=== PATIENT | female | born 1980 | race Caucasian/White ===

== ENCOUNTER 2020-01-25 09:39 | Inpatient (IN) | payer OTHER ==
--- NOTE | 2020-01-25 10:11 | BHS.RME ---
Substance Use & Tx History - Substance Use History Heroin Substance amount: 3-4 bags Frequency of use: Daily Substance route: Oral Date of Last Use: 01/25/20 (9am) Nicotine Substance amount: former smoker Physical/Psych/Mental Status - Behavior General Behavior: Increased activity (restlessness, agitation) Eye Contact: Normal - Cooperativeness Cooperativeness: Cooperative - Thinking Thought Processes: Tight, Logical, Goal Directed - Physical Health Problems Is patient presently having any pain?: No Does patient presently have any injuries (include location): No Does patient currently have a fever: No Is patient : No COWS - Scale Resting Pulse: 0= [place] 80 or Below Sweatin= No chills or Flushing Restless Observation: 1= Difficult to Sit Still Pupil Size: 0= Normal to Room Light Bone or Joint Aches: 1= Mild Discomfort Runny Nose/ Eye Tearin= Nasal Congestion GI Upset > 30mins: 1= Stomach Cramp Tremor Observation: 1= Tremor [place], Not Seen Yawning Observation: 1= 1-2x During Session Anxiety or Irritability: 1=Feels Anxious/Irritable Goose Flesh Skin: 0=Smooth Skin COWS Score: 7
--- NOTE | 2020-01-25 10:39 | HP ---
COWS - Scale Resting Pulse: 0= [place] 80 or Below Sweatin= No chills or Flushing Restless Observation: 1= Difficult to Sit Still Pupil Size: 0= Normal to Room Light Bone or Joint Aches: 1= Mild Discomfort Runny Nose/ Eye Tearin= Nasal Congestion GI Upset > 30mins: 1= Stomach Cramp Tremor Observation: 1= Tremor [place], Not Seen Yawning Observation: 1= 1-2x During Session Anxiety or Irritability: 1=Feels Anxious/Irritable Goose Flesh Skin: 0=Smooth Skin COWS Score: 7 CIWA Score - Admission Criteria [facility] Guidelines: Admission for Medically Managed Detox: Requires at least one of the followin. CIWA greater than 12 2. Seizures within the past 24 hours 3. Delirium tremens within the past 24 hours 4. Hallucinations within the past 24 hours 5. Acute intervention needed for co occurring medical disorder 6. Acute intervention needed for co occurring psychiatric disorder 7. Severe withdrawal that cannot be handled at a lower level of care (continued vomiting, continued diarrhea, abnormal vital signs) requiring intravenous medication and/or fluids 8. Admitting History and Physical - Admission Chief Complaint: " I want to be off of all substances. I tried detoxing myself but I couldn't do it." History of Present Illness: 39 year old male with history of opioid dependence with withdrawal. She used to be on methadone at [facility] until 05/2019 on a low dose of methadone 50mg daily and was lost to follow up. She attempted to go back to her program yesterday and was told they no longer have the license to treat "heroin-addicted" patients and referred her to come here for detox. She attempted self detox through suboxone strips she bought on the streets and felt too ill to continue. Apparently she had almost precipitated a withdrawal own herself. She feels for herself that she would be better off without any MAT or substance in her system and wants to try abstinence. She will do detox and then go on to rehab. She wants to at least try it. Substance Use & Tx History - Substance Use History Heroin Substance amount: 3-4 bags Frequency of use: Daily Substance route: Oral Date of Last Use: 01/25/20 (9am) She has overdosed once 3 months ago, does not have narcan Nicotine Substance amount: former smoker PMH: None Psurg: Right foot Psych: None Lives alone in [place], has no legal problems pending. LESLEY=0 COWS=7 She meets criteria for detox as she poses high risk for relapse and attempt at self detox was already shown to be too risky for her and her attempt to return to her treating program was met by her being turned away and referred to our program. In my opinion, attempting to self detox would pose a medical risk for this patient and returning her to the streets as an even higher risk for overdose as she's already had a recent dose and has no narcan. History Source: Patient Limitations to Obtaining History: No Limitations - Past Medical History Psych: Yes: Addictions - Past Surgical History Past Surgical History: Yes: None - Alcohol/Substance Use Hx Alcohol Use: No History of Substance Use: reports: Heroin Date of Last Use: 01/25/20 - Social History Usual Living Arrangement: Yes: Alone Do you think of yourself as: Straight/Heterosexual ADL: Independent Occupation: unemployed History of Recent Travel: No Admission [facility] Allergies/Adverse Reactions: Allergies Allergy/AdvReac Type Severity Reaction Status Date / Time No Known Allergies Allergy Verified 01/25/20 10:26 Exam Limitations: No Limitations - Ebola screening Have you traveled outside of the country in the last 21 days: No Have you had contact with anyone from an Ebola affected area: No Have you been sick,other than usual withdrawal symptoms: No Do you have a fever: No - Review of Systems Constitutional: Chills, Unintentional Wgt. Loss EENT: reports: No Symptoms Reported Respiratory: reports: No Symptoms reported Cardiac: reports: No Symptoms Reported GI: reports: No Symptoms Reported : reports: No Symptoms Reported Musculoskeletal: reports: No Symptoms Reported Integumentary: reports: No Symptoms Reported Neuro: reports: No Symptoms reported Endocrine: reports: No Symptoms Reported Hematology: reports: No Symptoms Reported Psychiatric: reports: Judgement Intact, Mood/Affect Appropiate, Orientated x3, Agitated, Anxious Other Systems: Reviewed and Negative Patient History - Patient Medical History Hx Anemia: No - Patient Surgical History Past Surgical History: No - PPD History Previous Implant?: Yes Documented Results: Negative w/o proof Implanted On Prior [facility] Admission?: No PPD to be Administered?: Yes - Smoking Cessation Smoking history: Former smoker Have you smoked in the past 12 months: No Hx Chewing Tobacco Use: No Initiated information on smoking cessation: No - Substances abused Heroin Substance route: Inhalation Frequency: Daily Amount used: 4 bags Age of first use: 33 Date of last use: 01/25/20 Admission Physical Exam [facility] - Vital Signs Vital Signs: Vital Signs - 24 hr 01/25/20 10:29 Temperature 97.8 F Pulse Rate 75 Respiratory 18 Rate Blood Pressure 117/73 - Physical General Appearance: Yes: Mild Distress, Thin, Irritable, Anxious HEENTM: Yes: EOMI, Hearing grossly Normal, Normal ENT Inspection, Normocephalic, Normal Voice, AMOL, Pharynx Normal, Tm's normal Respiratory: Yes: Chest Non-Tender, Lungs Clear, Normal Breath Sounds, No Respiratory Distress, No Accessory Muscle Use Neck: Yes: No masses,lesions,Nodules, Supple, Trachea in good position Breast: Yes: Within Normal Limits Cardiology: Yes: Regular Rhythm, Regular Rate, S1, S2 Abdominal: Yes: Normal Bowel Sounds, Non Tender, Soft Genitourinary: Yes: Within Normal Limits Back: Yes: Normal Inspection Musculoskeletal: Yes: full range of Motion, Gait Steady, Pelvis Stable Extremities: Yes: Normal Capillary Refill, Normal Inspection, Normal Range of Motion, Non-Tender Neurological: Yes: recycle driver II-XII NML intact, Fully Oriented, Alert, Motor Strength 5/5, Normal Mood/Affect, Normal Response Integumentary: Yes: Normal Color, Warm Lymphatic: Yes: Within Normal Limits - Diagnostic (1) Opioid dependence with withdrawal Current Visit: Yes Status: Acute Cleared for Admission [facility] - Detox or Rehab [facility] Level of Care: Medically Managed Detox Regimen/Protocol: Methadone Claeared for Rehab Admission: No Screened but not Admitted - Documentation of Visit Screened but not Admitted: No Breathalyzer - Breathalyzer Breathalyzer: 0 Vital Signs - Vital Signs Vital signs refused: No Temperature: 97.8 F Pulse Rate: 75 Respiratory Rate: 18 Blood Pressure: 117/73 BP Location: Left Arm Blood Pressure position: Sitting - Height Height: 5 ft 7 in - Weight Weight: 128 lb Weight measurement method: Standing scale - BMI Body Mass Index (BMI): 20.0 - Bowel Function Bowel Movement: No Urine Drug Screen - Test Device Lot number: [id number] Expiration date: 09/06/21 - Control Is test valid?: Yes - Results Drug screen NEGATIVE: No Urine drug screen results: MOP-Opiates Inpatient Rehab Admission - Rehab Decision to Admit Inpatient rehab admission?: No
[2020-01-25] MEDS ORDERED: BISMUTH SUBSALICYLATE 524 MG/30 ML UD PO PRN (11:08)
[2020-01-25] MEDS ORDERED: ACETAMINOPHEN 325 MG TABLET (FP) PO PRN ×2 (11:08)
[2020-01-25] MEDS ORDERED: MENTHOL/PHENOL 1 EACH UD MM PRN (11:08)
[2020-01-25] MEDS ORDERED: MAGNESIUM CITRATE 300 ML BOTTLE PO PRN (11:08)
[2020-01-25] MEDS ORDERED: MAGNESIUM HYDROX 2400MG/30ML ORAL SUSPENSION 30 ML CUP PO PRN (11:08)
[2020-01-25] MEDS ORDERED: MAG HYDROX/AL HYDROX/SIMETH 30 ML UNIT-DOSE CUP PO PRN (11:08)
[2020-01-25] MEDS ORDERED: cloNIDine HCL 0.1 MG TABLET PO PRN (11:08)
[2020-01-25] MEDS ORDERED: BIMATOPROST TP SCH (11:15)
--- NOTE | 2020-01-25 11:37 | EKG ---
Test Reason : Blood Pressure : / mmHG Vent. Rate : 064 BPM Atrial Rate : 064 BPM P-R Int : 152 ms QRS Dur : 098 ms QT Int : 408 ms P-R-T Axes : 059 090 073 degrees QTc Int : 420 ms NORMAL SINUS RHYTHM RIGHTWARD AXIS INCOMPLETE RIGHT BUNDLE BRANCH BLOCK BORDERLINE ECG NO PREVIOUS ECGS AVAILABLE Confirmed by MD Shawn, Anil ([id number]) on 01/25/2020 11:37:10 AM Referred By: Confirmed By:Anil Escobar MD
[2020-01-25] MEDS ORDERED: METHADONE HCL 10 MG TABLET (FOR DETOX USE ONLY) PO ONE (11:45)
[2020-01-25] MEDS ORDERED: ONDANSETRON *ODT* 4 MG TABLET SL ONE (11:45)
[2020-01-25] MEDS: PRENATAL VITAMINS W/ FOLIC ACID TABLET (FP) PO SCH (11:54)
[2020-01-25] MEDS: hydrOXYzine PAMOATE 25 MG CAPSULE (FP) PO SCH ×3 (14:07→22:56)
[2020-01-25 14:54] LABS: HEMATOCRIT 33.1 % (32.4-45.2); HEMOGLOBIN 10.8 GM/dL (10.7-15.3); MCH 28.9 pg (25.7-33.7); MCHC 32.5 g/dl (32.0-36.0); MEAN CELL VOLUME 88.7 fl (80-96); MEAN PLT VOLUME 8.6 fl (7.5-11.1); PLATELET COUNT 211 K/MM3 (134-434); RBC 3.73 M/mm3 (3.60-5.2); RDW 14.6 % (11.6-15.6); WHITE BLOOD COUNT 6.5 K/mm3 (4.0-10.0)
[2020-01-25 15:10] LABS: ALBUMIN 3.7 g/dl (3.4-5.0); BILIRUBIN,TOTAL 0.2 mg/dL (0.2-1); BLOOD UREA NITROGEN 15.5 mg/dL (7-18); CALCIUM 8.8 mg/dL (8.5-10.1); CREATININE 0.7 mg/dL (0.55-1.3); POTASSIUM 4.2 mmol/L (3.5-5.1); TOT PROT 7.1 g/dl (6.4-8.2)
[2020-01-25] MEDS: MELATONIN 5 MG TABLETS PO SCH (22:56)
[2020-01-25] MEDS: THIAMINE HCL 100 MG TABLET (FP) PO SCH (22:57)
[2020-01-26] MEDS: hydrOXYzine PAMOATE 25 MG CAPSULE (FP) PO SCH ×5 (06:55→22:43)
[2020-01-26] MEDS ORDERED: METHADONE HCL 5 MG TABLET (FOR DETOX USE ONLY) ONE (09:07)
[2020-01-26] MEDS ORDERED: METHADONE HCL 10 MG TABLET (FOR DETOX USE ONLY) ONE (09:08)
[2020-01-26] MEDS ORDERED: METHADONE (DETOX) 20 MG, METHADONE (DETOX) 5 MG PO ONE (10:00)
[2020-01-26] MEDS: PRENATAL VITAMINS W/ FOLIC ACID TABLET (FP) PO SCH (10:23)
--- NOTE | 2020-01-26 10:23 | PN ---
BHS COWS - Scale Resting Pulse: 0= [place] 80 or Below Sweatin= No chills or Flushing Restless Observation: 0= Sits Still Pupil Size: 1= Pupils >than Normal Bone or Joint Aches: 2= Severe Diffuse Aches Runny Nose/ Eye Tearin= Nasal Congestion GI Upset > 30mins: 1= Stomach Cramp Tremor Observation of Outstretched Hands: 2= Slight Tremor Visible Yawning Observation: 1= 1-2x During Session Anxiety or Irritability: 2=Irritable/Anxious Goose Flesh Skin: 0=Smooth Skin COWS Score: 10 BHS Progress Note (SOAP) Subjective: alert,irritable,anxious,interrupted sleep,aching pain in the body,ambulation on the unit Objective: 01/26/20 10:22 Vital Signs Temperature 98.1 F 01/26/20 06:18 Pulse Rate 69 01/26/20 06:18 Respiratory Rate 18 01/26/20 06:18 Blood Pressure 119/79 01/26/20 06:18 O2 Sat by Pulse Oximetry (%) 96 01/26/20 06:18 01/26/20 10:22 Laboratory Last Values WBC 6.5 K/mm3 (4.0-10.0) 01/25/20 11:00 RBC 3.73 M/mm3 (3.60-5.2) 01/25/20 11:00 Hgb 10.8 GM/dL (10.7-15.3) 01/25/20 11:00 Hct 33.1 % (32.4-45.2) 01/25/20 11:00 MCV 88.7 fl (80-96) 01/25/20 11:00 MCH 28.9 pg (25.7-33.7) 01/25/20 11:00 MCHC 32.5 g/dl (32.0-36.0) 01/25/20 11:00 RDW 14.6 % (11.6-15.6) 01/25/20 11:00 Plt Count 211 K/MM3 (134-434) 01/25/20 11:00 MPV 8.6 fl (7.5-11.1) 01/25/20 11:00 Sodium 137 mmol/L (136-145) 01/25/20 11:00 Potassium 4.2 mmol/L (3.5-5.1) 01/25/20 11:00 Chloride 101 mmol/L (98-107) 01/25/20 11:00 Carbon Dioxide 28 mmol/L (21-32) 01/25/20 11:00 Anion Gap 8 MMOL/L (8-16) 01/25/20 11:00 BUN 15.5 mg/dL (7-18) 01/25/20 11:00 Creatinine 0.7 mg/dL (0.55-1.3) 01/25/20 11:00 Est GFR (CKD-EPI)AfAm 125.61 01/25/20 11:00 Est GFR (CKD-EPI)NonAf 108.38 01/25/20 11:00 Random Glucose 67 mg/dL (74-106) L 01/25/20 11:00 Calcium 8.8 mg/dL (8.5-10.1) 01/25/20 11:00 Total Bilirubin 0.2 mg/dL (0.2-1) 01/25/20 11:00 AST 15 U/L (15-37) 01/25/20 11:00 ALT 22 U/L (13-61) 01/25/20 11:00 Alkaline Phosphatase 55 U/L (45-117) 01/25/20 11:00 Total Protein 7.1 g/dl (6.4-8.2) 01/25/20 11:00 Albumin 3.7 g/dl (3.4-5.0) 01/25/20 11:00 POC Urine HCG, Qual Negative 01/25/20 10:12 Syphilis Serology Non-reactive (NONREACTIVE) 01/25/20 11:00 COVID-19 (SARAY) Not detected (Not Detected) 01/25/20 11:00 HIV Ag/Ab Combo Qual Negative (NEGATIVE) 01/25/20 11:00 Assessment: 01/26/20 10:22 withdrawal symptom Plan: continue detox methadone regimen,encourage fluid,oral intake,initial glucose 67,bgm x 1 in am
[2020-01-26] MEDS: THIAMINE HCL 100 MG TABLET (FP) PO SCH (22:43)
[2020-01-26] MEDS: MELATONIN 5 MG TABLETS PO SCH (22:43)
[2020-01-27] MEDS: hydrOXYzine PAMOATE 25 MG CAPSULE (FP) PO SCH ×2 (07:17→10:34)
[2020-01-27] MEDS ORDERED: METHADONE HCL 10 MG TABLET (FOR DETOX USE ONLY) PO ONE (10:00)
--- NOTE | 2020-01-27 10:28 | PN ---
BHS COWS - Scale Resting Pulse: 1= [place] 81-100 Sweatin= No chills or Flushing Restless Observation: 0= Sits Still Pupil Size: 0= Normal to Room Light Bone or Joint Aches: 1= Mild Discomfort Runny Nose/ Eye Tearin= Nasal Congestion GI Upset > 30mins: 1= Stomach Cramp Tremor Observation of Outstretched Hands: 2= Slight Tremor Visible Yawning Observation: 0= None Anxiety or Irritability: 2=Irritable/Anxious Goose Flesh Skin: 0=Smooth Skin COWS Score: 8 BHS Progress Note (SOAP) Subjective: alert,irritable,anxious,interrupted sleep,pain in the body and back,aching pain Objective: 01/27/20 10:26 Vital Signs Temperature 97.8 F 01/27/20 09:07 Pulse Rate 90 01/27/20 09:07 Respiratory Rate 17 01/27/20 09:07 Blood Pressure 104/68 01/27/20 09:07 O2 Sat by Pulse Oximetry (%) 98 01/27/20 09:07 Laboratory Last Values WBC 6.5 K/mm3 (4.0-10.0) 01/25/20 11:00 RBC 3.73 M/mm3 (3.60-5.2) 01/25/20 11:00 Hgb 10.8 GM/dL (10.7-15.3) 01/25/20 11:00 Hct 33.1 % (32.4-45.2) 01/25/20 11:00 MCV 88.7 fl (80-96) 01/25/20 11:00 MCH 28.9 pg (25.7-33.7) 01/25/20 11:00 MCHC 32.5 g/dl (32.0-36.0) 01/25/20 11:00 RDW 14.6 % (11.6-15.6) 01/25/20 11:00 Plt Count 211 K/MM3 (134-434) 01/25/20 11:00 MPV 8.6 fl (7.5-11.1) 01/25/20 11:00 Sodium 137 mmol/L (136-145) 01/25/20 11:00 Potassium 4.2 mmol/L (3.5-5.1) 01/25/20 11:00 Chloride 101 mmol/L (98-107) 01/25/20 11:00 Carbon Dioxide 28 mmol/L (21-32) 01/25/20 11:00 Anion Gap 8 MMOL/L (8-16) 01/25/20 11:00 BUN 15.5 mg/dL (7-18) 01/25/20 11:00 Creatinine 0.7 mg/dL (0.55-1.3) 01/25/20 11:00 Est GFR (CKD-EPI)AfAm 125.61 01/25/20 11:00 Est GFR (CKD-EPI)NonAf 108.38 01/25/20 11:00 POC Glucometer 91 UNITS (80-120) 01/27/20 06:23 Random Glucose 67 mg/dL (74-106) L 01/25/20 11:00 Calcium 8.8 mg/dL (8.5-10.1) 01/25/20 11:00 Total Bilirubin 0.2 mg/dL (0.2-1) 01/25/20 11:00 AST 15 U/L (15-37) 01/25/20 11:00 ALT 22 U/L (13-61) 01/25/20 11:00 Alkaline Phosphatase 55 U/L (45-117) 01/25/20 11:00 Total Protein 7.1 g/dl (6.4-8.2) 01/25/20 11:00 Albumin 3.7 g/dl (3.4-5.0) 01/25/20 11:00 POC Urine HCG, Qual Negative 01/25/20 10:12 Syphilis Serology Non-reactive (NONREACTIVE) 01/25/20 11:00 COVID-19 (SARAY) Not detected (Not Detected) 01/25/20 11:00 HIV Ag/Ab Combo Qual Negative (NEGATIVE) 01/25/20 11:00 Assessment: 01/27/20 10:27 withdrawal symptom Plan: continue detox methadone regimen,bgm is 91
[2020-01-27] MEDS: PRENATAL VITAMINS W/ FOLIC ACID TABLET (FP) PO SCH (10:34)
[2020-01-27] MEDS: METHOCARBAMOL 500 MG TABLET PO PRN ×2 (10:34→18:52)
[2020-01-27] MEDS: hydrOXYzine PAMOATE 25 MG CAPSULE (FP) PO PRN (18:52)
[2020-01-27] MEDS: MELATONIN 5 MG TABLETS PO SCH (22:59)
[2020-01-27] MEDS: THIAMINE HCL 100 MG TABLET (FP) PO SCH (22:59)
[2020-01-28] MEDS ORDERED: METHADONE HCL 5 MG TABLET (FOR DETOX USE ONLY) ONE (08:58)
[2020-01-28] MEDS ORDERED: METHADONE HCL 10 MG TABLET (FOR DETOX USE ONLY) ONE (08:58)
[2020-01-28] MEDS ORDERED: METHADONE (DETOX) 10 MG, METHADONE (DETOX) 5 MG PO ONE (10:00)
[2020-01-28] MEDS: PRENATAL VITAMINS W/ FOLIC ACID TABLET (FP) PO SCH (10:11)
[2020-01-28] MEDS: METHOCARBAMOL 500 MG TABLET PO PRN ×2 (10:12→17:02)
--- NOTE | 2020-01-28 12:35 | PN ---
BHS COWS - Scale Resting Pulse: 1= [place] 81-100 Sweatin= Chills/Flushing Restless Observation: 1= Difficult to Sit Still Pupil Size: 0= Normal to Room Light Bone or Joint Aches: 2= Severe Diffuse Aches Runny Nose/ Eye Tearin= None GI Upset > 30mins: 0= None Tremor Observation of Outstretched Hands: 2= Slight Tremor Visible Yawning Observation: 0= None Anxiety or Irritability: 1=Feels Anxious/Irritable Goose Flesh Skin: 0=Smooth Skin COWS Score: 8 BHS Progress Note (SOAP) Subjective: C/O anxiety, chills, tremors, and body aches. Objective: 01/28/20 12:34 Vital Signs 01/28/20 01/28/20 05:15 08:43 Temperature 97.5 F L 98.9 F Pulse Rate 62 88 Respiratory 18 20 Rate Blood Pressure 96/53 L 101/66 O2 Sat by Pulse 97 Oximetry (%) Laboratory Last Values WBC 6.5 K/mm3 (4.0-10.0) 01/25/20 11:00 RBC 3.73 M/mm3 (3.60-5.2) 01/25/20 11:00 Hgb 10.8 GM/dL (10.7-15.3) 01/25/20 11:00 Hct 33.1 % (32.4-45.2) 01/25/20 11:00 MCV 88.7 fl (80-96) 01/25/20 11:00 MCH 28.9 pg (25.7-33.7) 01/25/20 11:00 MCHC 32.5 g/dl (32.0-36.0) 01/25/20 11:00 RDW 14.6 % (11.6-15.6) 01/25/20 11:00 Plt Count 211 K/MM3 (134-434) 01/25/20 11:00 MPV 8.6 fl (7.5-11.1) 01/25/20 11:00 Sodium 137 mmol/L (136-145) 01/25/20 11:00 Potassium 4.2 mmol/L (3.5-5.1) 01/25/20 11:00 Chloride 101 mmol/L (98-107) 01/25/20 11:00 Carbon Dioxide 28 mmol/L (21-32) 01/25/20 11:00 Anion Gap 8 MMOL/L (8-16) 01/25/20 11:00 BUN 15.5 mg/dL (7-18) 01/25/20 11:00 Creatinine 0.7 mg/dL (0.55-1.3) 01/25/20 11:00 Est GFR (CKD-EPI)AfAm 125.61 01/25/20 11:00 Est GFR (CKD-EPI)NonAf 108.38 01/25/20 11:00 POC Glucometer 91 UNITS (80-120) 01/27/20 06:23 Random Glucose 67 mg/dL (74-106) L 01/25/20 11:00 Calcium 8.8 mg/dL (8.5-10.1) 01/25/20 11:00 Total Bilirubin 0.2 mg/dL (0.2-1) 01/25/20 11:00 AST 15 U/L (15-37) 01/25/20 11:00 ALT 22 U/L (13-61) 01/25/20 11:00 Alkaline Phosphatase 55 U/L (45-117) 01/25/20 11:00 Total Protein 7.1 g/dl (6.4-8.2) 01/25/20 11:00 Albumin 3.7 g/dl (3.4-5.0) 01/25/20 11:00 POC Urine HCG, Qual Negative 01/25/20 10:12 Syphilis Serology Non-reactive (NONREACTIVE) 01/25/20 11:00 COVID-19 ([facility]ARAY) Not detected (Not Detected) 01/25/20 11:00 HIV Ag/Ab Combo Qual Negative (NEGATIVE) 01/25/20 11:00 Labs noted. Assessment: 01/28/20 12:34 Patient was seen and evaluated at bedside, alert and oriented x3, in no acute respiratory distress. Full ROM, ambulating without assistance. Skin warm to touch without lesion. Withdrawal symptoms. Plan: Continue detox protocol.
[2020-01-28] MEDS: IBUPROFEN 400 MG TABLET (FP) PO PRN (17:02)
[2020-01-28] MEDS: hydrOXYzine PAMOATE 25 MG CAPSULE (FP) PO PRN (19:09)
[2020-01-28] MEDS: THIAMINE HCL 100 MG TABLET (FP) PO SCH (21:43)
[2020-01-28] MEDS: MELATONIN 5 MG TABLETS PO SCH (21:44)
[2020-01-29] MEDS ORDERED: METHADONE HCL 10 MG TABLET (FOR DETOX USE ONLY) PO ONE (10:00)
[2020-01-29] MEDS: IBUPROFEN 400 MG TABLET (FP) PO PRN ×2 (10:17→17:13)
[2020-01-29] MEDS: PRENATAL VITAMINS W/ FOLIC ACID TABLET (FP) PO SCH (10:18)
[2020-01-29] MEDS: METHOCARBAMOL 500 MG TABLET PO PRN ×2 (10:18→17:14)
--- NOTE | 2020-01-29 12:37 | PN ---
BHS COWS - Scale Resting Pulse: 0= [place] 80 or Below Sweatin= No chills or Flushing Restless Observation: 0= Sits Still Pupil Size: 0= Normal to Room Light Bone or Joint Aches: 1= Mild Discomfort Runny Nose/ Eye Tearin= Nasal Congestion GI Upset > 30mins: 1= Stomach Cramp Tremor Observation of Outstretched Hands: 0= None Yawning Observation: 0= None Anxiety or Irritability: 1=Feels Anxious/Irritable Goose Flesh Skin: 0=Smooth Skin COWS Score: 4 BHS Progress Note (SOAP) Subjective: Bone ache, fatigue, interrupted sleep Objective: 01/29/20 12:32 Last Vital Signs Temp Pulse Resp BP Pulse Ox 98.9 F 89 16 111/65 96 01/29/20 08:39 01/29/20 08:39 01/29/20 08:39 01/29/20 08:39 01/29/20 06:31 Laboratory Tests 01/25/20 01/25/20 01/25/20 10:12 11:00 11:00 WBC 6.5 RBC 3.73 Hgb 10.8 Hct 33.1 MCV 88.7 MCH 28.9 MCHC 32.5 RDW 14.6 Plt Count 211 MPV 8.6 Sodium Potassium Chloride Carbon Dioxide Anion Gap BUN Creatinine Est GFR (CKD-EPI)AfAm Est GFR (CKD-EPI)NonAf POC Glucometer Random Glucose Calcium Total Bilirubin AST ALT Alkaline Phosphatase Total Protein Albumin POC Urine HCG, Qual Negative Syphilis Serology COVID-19 ([facility]ARAY) HIV Ag/Ab Combo Qual Negative 01/25/20 01/25/20 01/25/20 11:00 11:00 11:00 WBC RBC Hgb Hct MCV MCH MCHC RDW Plt Count MPV Sodium 137 Potassium 4.2 Chloride 101 Carbon Dioxide 28 Anion Gap 8 BUN 15.5 Creatinine 0.7 Est GFR (CKD-EPI)AfAm 125.61 Est GFR (CKD-EPI)NonAf 108.38 POC Glucometer Random Glucose 67 L Calcium 8.8 Total Bilirubin 0.2 AST 15 ALT 22 Alkaline Phosphatase 55 Total Protein 7.1 Albumin 3.7 POC Urine HCG, Qual Syphilis Serology Non-reactive COVID-19 ([facility]ARAY) Not detected HIV Ag/Ab Combo Qual 01/27/20 06:23 WBC RBC Hgb Hct MCV MCH MCHC RDW Plt Count MPV Sodium Potassium Chloride Carbon Dioxide Anion Gap BUN Creatinine Est GFR (CKD-EPI)AfAm Est GFR (CKD-EPI)NonAf POC Glucometer 91 Random Glucose Calcium Total Bilirubin AST ALT Alkaline Phosphatase Total Protein Albumin POC Urine HCG, Qual Syphilis Serology COVID-19 ([facility]ARAY) HIV Ag/Ab Combo Qual Labs reviewed Assessment: 01/29/20 12:37 Withdrawal sxs Plan: Continue detox Encourage PO water intake Patient is scheduled for discharge tomorrow
[2020-01-29] MEDS: hydrOXYzine PAMOATE 25 MG CAPSULE (FP) PO PRN (19:04)
[2020-01-29] MEDS: THIAMINE HCL 100 MG TABLET (FP) PO SCH (23:18)
[2020-01-29] MEDS: MELATONIN 5 MG TABLETS PO SCH (23:18)
[2020-01-30] MEDS: METHOCARBAMOL 500 MG TABLET PO PRN (05:56)
[2020-01-30] MEDS ORDERED: METHADONE HCL 5 MG TABLET (FOR DETOX USE ONLY) PO ONE (06:00)
[2020-01-30 09:53] VITALS: BP 125/73; PULSE 92; TEMP 98
--- NOTE | 2020-01-30 10:57 | PN ---
[facility] CIWA - CIWA Score Nausea/Vomitin-No Nausea/No Vomiting Muscle Tremors: None Anxiety: 1-Mildly Anxious Agitation: 0-Normal Activity Paroxysmal Sweats: No Perspiration Orientation: 0-Oriented Tacttile Disturbances: 0-None Auditory Disturbances: 0-None Visual Disturbances: 0-None Headache: 0-None Present CIWA-Ar Total Score: 1 S Progress Note (SOAP) Subjective: alert,no complaint Objective: 01/30/20 10:55 Vital Signs Temperature 98.0 F 01/30/20 08:53 Pulse Rate 92 H 01/30/20 08:53 Respiratory Rate 18 01/30/20 08:53 Blood Pressure 125/73 01/30/20 08:53 O2 Sat by Pulse Oximetry (%) 100 01/30/20 08:53 Assessment: 01/30/20 10:55 detox completed,no withdrawal symptom Plan: detox completed,no withdrawal symptom,discharge today,follow up with after care program as arrangement
--- NOTE | 2020-01-30 11:04 | DS ---
[facility] Detox Discharge Summary Admission Date: 01/25/20 Discharge Date: 01/30/20 - History Present History: Opioid Dependence Additional Comments: alert,oriented x 3 lung clear on auscultation bilaterally ambulation on the unit no swelling of leg detox completed no withdrawal symptom declined rehab stable for discharge today follow up with after care program as arrangement total time of discharge 35 minutes - Physical Exam Results Vital Signs: Vital Signs Temperature 98.0 F 01/30/20 08:53 Pulse Rate 92 H 01/30/20 08:53 Respiratory Rate 18 01/30/20 08:53 Blood Pressure 125/73 01/30/20 08:53 O2 Sat by Pulse Oximetry (%) 100 01/30/20 08:53 Pertinent Admission Physical Exam Findings: withdrawal signs and symptom Laboratory Last Values WBC 6.5 K/mm3 (4.0-10.0) 01/25/20 11:00 RBC 3.73 M/mm3 (3.60-5.2) 01/25/20 11:00 Hgb 10.8 GM/dL (10.7-15.3) 01/25/20 11:00 Hct 33.1 % (32.4-45.2) 01/25/20 11:00 MCV 88.7 fl (80-96) 01/25/20 11:00 MCH 28.9 pg (25.7-33.7) 01/25/20 11:00 MCHC 32.5 g/dl (32.0-36.0) 01/25/20 11:00 RDW 14.6 % (11.6-15.6) 01/25/20 11:00 Plt Count 211 K/MM3 (134-434) 01/25/20 11:00 MPV 8.6 fl (7.5-11.1) 01/25/20 11:00 Sodium 137 mmol/L (136-145) 01/25/20 11:00 Potassium 4.2 mmol/L (3.5-5.1) 01/25/20 11:00 Chloride 101 mmol/L (98-107) 01/25/20 11:00 Carbon Dioxide 28 mmol/L (21-32) 01/25/20 11:00 Anion Gap 8 MMOL/L (8-16) 01/25/20 11:00 BUN 15.5 mg/dL (7-18) 01/25/20 11:00 Creatinine 0.7 mg/dL (0.55-1.3) 01/25/20 11:00 Est GFR (CKD-EPI)AfAm 125.61 01/25/20 11:00 Est GFR (CKD-EPI)NonAf 108.38 01/25/20 11:00 POC Glucometer 91 UNITS (80-120) 01/27/20 06:23 Random Glucose 67 mg/dL (74-106) L 01/25/20 11:00 Calcium 8.8 mg/dL (8.5-10.1) 01/25/20 11:00 Total Bilirubin 0.2 mg/dL (0.2-1) 01/25/20 11:00 AST 15 U/L (15-37) 01/25/20 11:00 ALT 22 U/L (13-61) 01/25/20 11:00 Alkaline Phosphatase 55 U/L (45-117) 01/25/20 11:00 Total Protein 7.1 g/dl (6.4-8.2) 01/25/20 11:00 Albumin 3.7 g/dl (3.4-5.0) 01/25/20 11:00 POC Urine HCG, Qual Negative 01/25/20 10:12 Syphilis Serology Non-reactive (NONREACTIVE) 01/25/20 11:00 COVID-19 (SARAY) Not detected (Not Detected) 01/25/20 11:00 HIV Ag/Ab Combo Qual Negative (NEGATIVE) 01/25/20 11:00 Vital Signs Temperature 98.0 F 01/30/20 08:53 Pulse Rate 92 H 01/30/20 08:53 Respiratory Rate 18 01/30/20 08:53 Blood Pressure 125/73 01/30/20 08:53 O2 Sat by Pulse Oximetry (%) 100 01/30/20 08:53 - Treatment Hospital Course: Detox Protocol Followed, Detoxed Safely, Responded well, Discharged Condition Good - Medication Discharge Medications: Ambulatory Orders Bimatoprost [Latisse] 5 ml TP DAILY 01/25/20 - Diagnosis (1) Opioid dependence with withdrawal Status: Acute - AMA Did Patient Leave Against Medical Advice: No
== END 2020-01-30 09:08 | disposition home or self-care (01) | DRG 773 ==
LOC: YASAS 09:39 → Y6N 10:35
PROVIDERS: ADMIT Allergy & Immunology; ATTEND Allergy & Immunology
PROC: HZ2ZZZZ Detoxification Services for Substance Abuse Treatment (ICD-10-PCS; principal; 2020-01-25)
DX: F11.23 Opioid dependence with withdrawal (principal); F17.211 Nicotine dependence, cigarettes, in remission
CPT/HCPCS: 36415; 80053; 81025; 82962; 85027; 86780; 87389; 93005; 93010; U0003

== ENCOUNTER 2021-05-07 15:47 | Inpatient (IN) | payer OTHER ==
[2021-05-07] MEDS ORDERED: MAG HYDROX/AL HYDROX/SIMETH 30 ML UNIT-DOSE CUP PO PRN (17:34)
[2021-05-07] MEDS ORDERED: ACETAMINOPHEN 325 MG TABLET (FP) PO PRN ×2 (17:34)
[2021-05-07] MEDS ORDERED: MENTHOL/PHENOL 1 EACH UD MM PRN (17:34)
[2021-05-07] MEDS ORDERED: MAGNESIUM HYDROX 2400MG/30ML ORAL SUSPENSION 30 ML CUP PO PRN (17:34)
[2021-05-07] MEDS ORDERED: ONDANSETRON *ODT* 4 MG TABLET SL PRN (17:34)
[2021-05-07] MEDS ORDERED: P-EPHED 60MG/TRIPROLIDI 2.5MG TABLET PO PRN (17:34)
[2021-05-07] MEDS ORDERED: BISMUTH SUBSALICYLATE 524 MG/30 ML PO PRN (17:34)
[2021-05-07] MEDS ORDERED: MAGNESIUM CITRATE 300 ML BOTTLE PO PRN (17:34)
[2021-05-07] MEDS ORDERED: IBUPROFEN 400 MG TABLET (FP) PO PRN (17:34)
[2021-05-07 18:09] VITALS: BMI 21.9
[2021-05-07] MEDS ORDERED: LIP BALM (CHAPSTICK) TP ONE (18:18)
[2021-05-07] MEDS: METHOCARBAMOL 500 MG TABLET PO PRN (19:37)
[2021-05-07] MEDS: hydrOXYzine PAMOATE 25 MG CAPSULE (FP) PO PRN ×2 (19:37→22:20)
[2021-05-07] MEDS: MELATONIN 5 MG TABLETS PO SCH (22:20)
[2021-05-07] MEDS: THIAMINE HCL 100 MG TABLET (FP) PO SCH (22:20)
[2021-05-08] MEDS: cloNIDine HCL 0.1 MG TABLET PO PRN ×2 (00:35→20:12)
[2021-05-08] MEDS: METHOCARBAMOL 500 MG TABLET PO PRN ×3 (01:47→18:22)
[2021-05-08] MEDS: PRENATAL VITAMINS W/ FOLIC ACID TABLET (FP) PO SCH (10:26)
[2021-05-08] MEDS: hydrOXYzine PAMOATE 25 MG CAPSULE (FP) PO PRN (10:26)
[2021-05-08] MEDS ORDERED: cloNIDine HCL 0.1 MG TABLET PO PRN (10:37)
[2021-05-08] MEDS ORDERED: methaDONE HCL 10 MG TABLET (FOR DETOX USE ONLY) PO ONE (10:37)
[2021-05-08 10:40] LABS: HEMATOCRIT 33.6 % (32.4-45.2); HEMOGLOBIN 11.2 GM/dL (10.7-15.3); MCHC 33.5 g/dl (32.0-36.0); MEAN CELL VOLUME 86.7 fl (80-96); MEAN PLT VOLUME 7.8 fl (7.5-11.1); PLATELET COUNT 287 10^3/uL (134-434); RBC 3.88 M/mm3 (3.60-5.2); RDW 14.6 % (11.6-15.6); WHITE BLOOD COUNT 5.3 K/mm3 (4.0-10.0)
[2021-05-08 11:04] LABS: ALBUMIN 3.2 g/dl (3.4-5.0); BLOOD UREA NITROGEN 13.4 mg/dL (7-18)
[2021-05-08 11:07] LABS: CREATININE 0.7 mg/dL (0.55-1.3)
[2021-05-08 11:08] LABS: BILIRUBIN,TOTAL 0.5 mg/dL (0.2-1)
[2021-05-08 11:09] LABS: TOT PROT 7.2 g/dl (6.4-8.2)
[2021-05-08] MEDS: SENNOSIDES/DOCUSATE COMBO (SENNA PLUS) TABLET (UD) PO SCH ×2 (12:35→22:54)
[2021-05-08] MEDS ORDERED: hydrOXYzine PAMOATE 25 MG CAPSULE (FP) PO PRN ×2 (18:23→18:25)
[2021-05-08] MEDS: MELATONIN 5 MG TABLETS PO SCH (22:53)
[2021-05-08] MEDS: THIAMINE HCL 100 MG TABLET (FP) PO SCH (22:54)
[2021-05-09] MEDS: METHOCARBAMOL 500 MG TABLET PO PRN (03:23)
[2021-05-09] MEDS ORDERED: methaDONE HCL 10 MG TABLET (FOR DETOX USE ONLY) ONE (09:34)
[2021-05-09] MEDS: PRENATAL VITAMINS W/ FOLIC ACID TABLET (FP) PO SCH (10:32)
[2021-05-09] MEDS: SENNOSIDES/DOCUSATE COMBO (SENNA PLUS) TABLET (UD) PO SCH (10:32)
[2021-05-09 12:46] VITALS: BP 116/63; PULSE 96; TEMP 98.6
[2021-05-09] MEDS ORDERED: diazePAM 5 MG TABLET PO PRN (12:46)
[2021-05-10] MEDS ORDERED: methaDONE HCL 10 MG TABLET (FOR DETOX USE ONLY) PO ONE (10:00)
[2021-05-12] MEDS ORDERED: methaDONE HCL 10 MG TABLET (FOR DETOX USE ONLY) PO ONE (10:00)
== END 2021-05-09 14:24 | disposition left against medical advice (07) | DRG 770 ==
LOC: YASAS 15:47 → Y3N 18:24
PROVIDERS: ADMIT Allergy & Immunology; ATTEND Allergy & Immunology
PROC: HZ2ZZZZ Detoxification Services for Substance Abuse Treatment (ICD-10-PCS; principal; 2021-05-07)
DX: F11.23 Opioid dependence with withdrawal (principal); Z87.891 Personal history of nicotine dependence
CPT/HCPCS: 36415; 80053; 81025; 85027; 86780; C9803; J0735; Q0162; U0003; U0005